=== PATIENT | female | born 1940 | race Caucasian/White ===

== ENCOUNTER → 2016-09-18 | Outpatient (CLI) | payer MEDICARE, OTHER ==
[2016-01-25 16:52] VITALS: BP 121/76
[~2016-09-18] MED LIST: DETROL1 M1 PO; LISINOPRIL10 MG PO; NORCO 325 MG-7.1 TAB PO; OMEPRAZOLE D/R20 MG PO; OXYCODONE5 M1 PO; RANITIDINE 150150 MG PO; SINGULAIR PO; ZYRTEC ALLERGY10 MG PO
== END ==
LOC: RAD 10:44
DX: M17.11 Unilateral primary osteoarthritis, right knee (principal); K22.70 Barrett's esophagus without dysplasia; I10 Essential (primary) hypertension

== ENCOUNTER → 2017-11-13 | Outpatient (CLI) | payer MEDICARE, OTHER ==
[2016-01-25 16:52] VITALS: BP 121/76
== END ==
LOC: RAD 16:59
DX: M19.071 Primary osteoarthritis, right ankle and foot (principal); M25.471 Effusion, right ankle; M79.89 Other specified soft tissue disorders; M25.771 Osteophyte, right ankle; M77.31 Calcaneal spur, right foot

== ENCOUNTER → 2017-11-19 | Outpatient (CLI) | payer MEDICARE, OTHER ==
[2016-01-25 16:52] VITALS: BP 121/76
[2017-11-19 11:17] LABS: ALBUMIN 4.1 g/dL (3.5-5.0); CALCIUM 9.9 mg/dL (8.4-10.2); POTASSIUM 4.1 mmol/L (3.6-5.0); TOTAL BILIRUBIN 0.7 mg/dL (0.2-1.3); TOTAL PROTEIN 7.1 g/dL (6.3-8.2)
== END ==
LOC: RAD 10:36
PROVIDERS: Family Medicine
DX: Z13.820 Encounter for screening for osteoporosis (principal); M81.0 Age-related osteoporosis without current pathological fracture; Z00.00 Encounter for general adult medical examination without abnormal findings; M17.9 Osteoarthritis of knee, unspecified; I10 Essential (primary) hypertension; J30.9 Allergic rhinitis, unspecified; J45.991 Cough variant asthma; S82.891A Other fracture of right lower leg, initial encounter for closed fracture; I51.9 Heart disease, unspecified; K21.9 Gastro-esophageal reflux disease without esophagitis; K22.70 Barrett's esophagus without dysplasia

== ENCOUNTER 2017-12-10 14:00 | Outpatient (RCR) | payer MEDICARE, OTHER ==
[2016-01-25 16:52] VITALS: BP 121/76
== END 2017-12-10 14:30 | disposition home or self-care (01) ==
LOC: PT 14:00
DX: S93.401D Sprain of unspecified ligament of right ankle, subsequent encounter (principal); W19.XXXD Unspecified fall, subsequent encounter; Y92.009 Unspecified place in unspecified non-institutional (private) residence as the place of occurrence of the external cause
CPT/HCPCS: G8978-GP; G8979-GP

== ENCOUNTER 2018-02-04 09:00 | Outpatient (RCR) | payer MEDICARE, OTHER ==
[2016-01-25 16:52] VITALS: BP 121/76
== END 2018-02-04 09:30 | disposition home or self-care (01) ==
LOC: PT 09:00
DX: S82.54XD Nondisplaced fracture of medial malleolus of right tibia, subsequent encounter for closed fracture with routine healing (principal)
CPT/HCPCS: G8979-GP

== ENCOUNTER → 2018-04-30 | Outpatient (CLI) | payer MEDICARE, OTHER ==
[2016-01-25 16:52] VITALS: BP 121/76
== END ==
LOC: RAD 14:10
DX: M48.56XA Collapsed vertebra, not elsewhere classified, lumbar region, initial encounter for fracture (principal); M47.816 Spondylosis without myelopathy or radiculopathy, lumbar region; M41.85 Other forms of scoliosis, thoracolumbar region

== ENCOUNTER → 2018-05-06 | Outpatient (CLI) | payer MEDICARE, OTHER ==
[2016-01-25 16:52] VITALS: BP 121/76
== END ==
LOC: RAD 12:11
DX: S32.040A Wedge compression fracture of fourth lumbar vertebra, initial encounter for closed fracture (principal); W19.XXXA Unspecified fall, initial encounter; M51.25 Other intervertebral disc displacement, thoracolumbar region; M47.817 Spondylosis without myelopathy or radiculopathy, lumbosacral region

== ENCOUNTER → 2018-05-29 | Outpatient (CLI) | payer MEDICARE, OTHER ==
[2016-01-25 16:52] VITALS: BP 121/76
== END ==
LOC: RAD 11:33
DX: M41.9 Scoliosis, unspecified (principal); G95.29 Other cord compression; M47.816 Spondylosis without myelopathy or radiculopathy, lumbar region

== ENCOUNTER → 2018-06-03 | Outpatient (CLI) | payer MEDICARE, OTHER ==
[2016-01-25 16:52] VITALS: BP 121/76
== END ==
LOC: RAD 15:56
DX: S32.038A Other fracture of third lumbar vertebra, initial encounter for closed fracture (principal); M51.36 Other intervertebral disc degeneration, lumbar region; M48.061 Spinal stenosis, lumbar region without neurogenic claudication; M47.816 Spondylosis without myelopathy or radiculopathy, lumbar region

== ENCOUNTER → 2018-09-16 | Day surgery (SDC) | payer MEDICARE, OTHER ==
[2016-01-25 16:52] VITALS: BP 121/76
== END ==
LOC: MSO 10:28
DX: D04.62 Carcinoma in situ of skin of left upper limb, including shoulder (principal); I10 Essential (primary) hypertension; K21.9 Gastro-esophageal reflux disease without esophagitis; J45.909 Unspecified asthma, uncomplicated; M81.0 Age-related osteoporosis without current pathological fracture; Z90.710 Acquired absence of both cervix and uterus; Z80.0 Family history of malignant neoplasm of digestive organs; Z88.6 Allergy status to analgesic agent; Z91.041 Radiographic dye allergy status

== ENCOUNTER 2018-10-14 14:30 | Outpatient (RCR) | payer MEDICARE, OTHER ==
[2016-01-25 16:52] VITALS: BP 121/76
== END 2018-10-16 ==
LOC: PT
DX: M40.204 Unspecified kyphosis, thoracic region (principal); M47.816 Spondylosis without myelopathy or radiculopathy, lumbar region; M48.50XA Collapsed vertebra, not elsewhere classified, site unspecified, initial encounter for fracture; M25.512 Pain in left shoulder

== ENCOUNTER → 2019-04-23 | Outpatient (CLI) | payer MEDICARE, OTHER ==
[2016-01-25 16:52] VITALS: BP 121/76
[2019-04-23 15:01] LABS: ALBUMIN 4.5 g/dL (3.4-4.8); POTASSIUM 4.4 mmol/L (3.5-5.1)
[2019-04-23 15:02] LABS: CALCIUM 10.4 mg/dL (8.3-10.5)
[2019-04-23 15:03] LABS: TOTAL PROTEIN 7.1 g/dL (6.2-8.1)
[2019-04-23 15:05] LABS: TOTAL BILIRUBIN 0.9 mg/dL (0.2-1.2)
[2019-04-23 16:37] LABS: PH-URINE 5.5 (5.0 - 8.0); URINE APPEARANCE CLOUDY; URINE COLOR YELLOW; URINE PROTEIN(semi-quant) TRACE mg/dL (NEGATIVE)
[2019-04-23 16:38] LABS: URINE BILIRUBIN NEGATIVE (NEGATIVE); URINE BLOOD TRACE (NEGATIVE); URINE GLUCOSE NEGATIVE (NEGATIVE); URINE KETONE NEGATIVE (NEGATIVE); URINE LEUKOCYTE ESTERASE 2+ (NEGATIVE); URINE NITRATE POSITIVE (NEGATIVE); URINE UROBILINOGEN NORMAL (NORMAL); URINE WBC >50 /hpf (0-3)
== END ==
LOC: LAB 14:36
PROVIDERS: Family Medicine
DX: Z00.00 Encounter for general adult medical examination without abnormal findings (principal); J45.991 Cough variant asthma; I10 Essential (primary) hypertension; M50.30 Other cervical disc degeneration, unspecified cervical region; K21.9 Gastro-esophageal reflux disease without esophagitis; M47.816 Spondylosis without myelopathy or radiculopathy, lumbar region; M41.124 Adolescent idiopathic scoliosis, thoracic region; K22.70 Barrett's esophagus without dysplasia; J30.9 Allergic rhinitis, unspecified; R73.03 Prediabetes; R32 Unspecified urinary incontinence

== ENCOUNTER → 2019-05-07 | Outpatient (CLI) | payer MEDICARE, OTHER ==
[2016-01-25 16:52] VITALS: BP 121/76
[2019-05-07 11:02] LABS: URINE APPEARANCE CLEAR; URINE BILIRUBIN NEGATIVE (NEGATIVE); URINE BLOOD NEGATIVE (NEGATIVE); URINE COLOR YELLOW; URINE GLUCOSE NEGATIVE (NEGATIVE); URINE KETONE NEGATIVE (NEGATIVE); URINE LEUKOCYTE ESTERASE NEGATIVE (NEGATIVE); URINE MUCUS PRESENT (NOT PRESENT); URINE NITRATE NEGATIVE (NEGATIVE); URINE PROTEIN(semi-quant) TRACE mg/dL (NEGATIVE); URINE UROBILINOGEN NORMAL (NORMAL)
== END ==
LOC: LAB 08:57
PROVIDERS: Family Medicine
DX: N39.0 Urinary tract infection, site not specified (principal)

== ENCOUNTER → 2020-04-23 | Outpatient (CLI) | payer MEDICARE, OTHER ==
[2016-01-25 16:52] VITALS: BP 121/76
[2020-04-23 08:35] LABS: POTASSIUM 3.7 mmol/L (3.5-5.1)
[2020-04-23 08:37] LABS: CALCIUM 8.8 mg/dL (8.3-10.5)
[2020-04-23 08:38] LABS: TOTAL PROTEIN 6.7 g/dL (6.2-8.1)
[2020-04-23 08:40] LABS: TOTAL BILIRUBIN 1.1 mg/dL (0.2-1.2)
== END ==
LOC: LAB 08:06
PROVIDERS: Family Medicine
DX: I10 Essential (primary) hypertension (principal)

== ENCOUNTER → 2020-09-15 | Outpatient (CLI) | payer MEDICARE, OTHER | LOC: LAB 14:11 | DX: R05 Cough (principal); Z20.822 Contact with and (suspected) exposure to COVID-19 ==

== ENCOUNTER → 2021-03-29 | Outpatient (CLI) | payer MEDICARE | LOC: MAMMO 11:30 → RAD 11:38 → MAMMO 11:38 | DX: M81.0 Age-related osteoporosis without current pathological fracture (principal) ==

== ENCOUNTER → 2021-08-04 | Outpatient (CLI) | payer MEDICARE ==
[2021-08-04 16:53] LABS: POTASSIUM 4.1 mmol/L (3.5-5.1)
[2021-08-04 16:54] LABS: CALCIUM 10.3 mg/dL (8.3-10.5)
== END ==
LOC: LAB 15:43
PROVIDERS: Family Medicine
DX: I49.40 Unspecified premature depolarization (principal); R60.0 Localized edema; R09.89 Other specified symptoms and signs involving the circulatory and respiratory systems

== ENCOUNTER → 2021-08-05 | Outpatient (CLI) | payer MEDICARE | LOC: RAD 07:00 → AMSURD 08:33 | DX: I82.431 Acute embolism and thrombosis of right popliteal vein (principal); I82.4Z1 Acute embolism and thrombosis of unspecified deep veins of right distal lower extremity; I49.40 Unspecified premature depolarization ==

== ENCOUNTER → 2021-08-11 | Outpatient (CLI) | payer MEDICARE ==
[2021-08-11 15:52] LABS: CALCIUM 9.2 mg/dL (8.3-10.5)
[2021-08-11 15:56] LABS: URINE APPEARANCE CLEAR; URINE BILIRUBIN NEGATIVE (NEGATIVE); URINE BLOOD NEGATIVE (NEGATIVE); URINE COLOR YELLOW; URINE GLUCOSE NEGATIVE (NEGATIVE); URINE KETONE NEGATIVE (NEGATIVE); URINE LEUKOCYTE ESTERASE NEGATIVE (NEGATIVE); URINE MUCUS PRESENT (NOT PRESENT); URINE NITRATE NEGATIVE (NEGATIVE); URINE PROTEIN(semi-quant) NEGATIVE (NEGATIVE); URINE UROBILINOGEN NORMAL (NORMAL)
== END ==
LOC: LAB 12:40
PROVIDERS: Family Medicine
DX: N39.0 Urinary tract infection, site not specified (principal); I49.40 Unspecified premature depolarization; R60.0 Localized edema; R09.89 Other specified symptoms and signs involving the circulatory and respiratory systems

== ENCOUNTER → 2021-08-15 | Outpatient (CLI) | payer MEDICARE | LOC: RAD 12:07 | DX: M47.816 Spondylosis without myelopathy or radiculopathy, lumbar region (principal); M48.061 Spinal stenosis, lumbar region without neurogenic claudication; M41.86 Other forms of scoliosis, lumbar region ==

== ENCOUNTER → 2021-10-25 | Outpatient (CLI) | payer MEDICARE | LOC: LAB 15:25 | DX: I50.32 Chronic diastolic (congestive) heart failure (principal) ==

== ENCOUNTER 2022-01-20 13:18 | Emergency (ER) | payer MEDICARE ==
[~2022-01-20] VITALS: Ht 152.4 cm; Wt 59.1 kg
[2022-01-20] MEDS ORDERED: ALENDRONATE SOD70 MG PO (13:46)
[2022-01-20 13:47] LABS: URINE WBC 0 /hpf (0-3)
[2022-01-20] MEDS ORDERED: FAMOTIDINE20 MG PO (13:47)
[2022-01-20] MEDS ORDERED: JARDIANCE10 MG PO (13:47)
[2022-01-20] MEDS ORDERED: ELIQUIS2.5 MG PO (13:47)
[2022-01-20] MEDS ORDERED: AMOXICILLIN AND1 TA2 PO (13:47)
[2022-01-20] MEDS ORDERED: PANTOPRAZOLE SO20 M1 PO (13:47)
[2022-01-20] MEDS ORDERED: TRAMADOL 50 MG TAB PO (13:48)
[2022-01-20] MEDS ORDERED: FUROSEMIDE20 MG PO (13:48)
[2022-01-20 14:10] LABS: URINE APPEARANCE CLOUDY; URINE COLOR RED; URINE KETONE NEGATIVE (NEGATIVE); URINE PROTEIN(semi-quant) 3+ (NEGATIVE)
[2022-01-20 14:11] LABS: URINE BILIRUBIN NEGATIVE (NEGATIVE); URINE BLOOD 250 ery/uL (NEGATIVE); URINE LEUKOCYTE ESTERASE NEGATIVE (NEGATIVE); URINE NITRATE NEGATIVE (NEGATIVE); URINE UROBILINOGEN 1 mg/dL (NORMAL)
[2022-01-20 14:17] LABS: BASO # 0.03 K/mm3 (0.02-0.10); EOS # 0.09 K/mm3 (0.04-0.40); EOS % 1.5 % (1.0-5.0); HEMATOCRIT 39.7 % (37.0-47.0); HEMOGLOBIN 12.9 g/dL (12.5-16.0); LYMPH# 1.16 K/mm3 (1.50-4.00); MEAN CELL VOLUME 90 fl (78-100); MEAN CORPUSCULAR HEMOGLOBIN 29 pg (27-31); MEAN CORPUSCULAR HGB CONC 33 g/dL (33-37); MEAN PLATELET VOLUME 9.1 fl (7.4-10.4); MONO # 0.75 K/mm3 (0.20-0.80); NEU # 4.05 K/mm3 (1.40-6.50); PLATELET COUNT 238 K/mm3 (130-400); RED BLOOD COUNT 4.41 M/mm3 (4.10-5.30); RED CELL DISTRIBUTION WIDTH 13.3 % (11.5-14.5); WHITE BLOOD COUNT 6.1 K/mm3 (4.8-10.8)
[2022-01-20 14:28] LABS: ALBUMIN 3.6 g/dL (3.4-4.8); POTASSIUM 4.9 mmol/L (3.5-5.1)
[2022-01-20 14:30] LABS: CALCIUM 9.7 mg/dL (8.3-10.5)
[2022-01-20 14:31] LABS: TOTAL PROTEIN 6.2 g/dL (6.2-8.1)
[2022-01-20 14:33] LABS: TOTAL BILIRUBIN 0.6 mg/dL (0.2-1.2)
[2022-01-20] MEDS ORDERED: CEPHALEXIN500 M1 PO (15:48)
[2022-01-20 16:19] VITALS: BP 149/90
== END 2022-01-20 16:20 | disposition home or self-care (01) ==
LOC: ED 13:18
PROVIDERS: Nurse Practitioner
DX: N12 Tubulo-interstitial nephritis, not specified as acute or chronic (principal); Z79.01 Long term (current) use of anticoagulants
CPT/HCPCS: J0696; J7030

== ENCOUNTER → 2022-01-27 | Outpatient (CLI) | payer MEDICARE ==
[~2022-01-27] MED LIST changes: +ALENDRONATE SOD70 MG PO; +AMOXICILLIN AND1 TA2 PO; +CEPHALEXIN500 M1 PO; +ELIQUIS2.5 MG PO; +FAMOTIDINE20 MG PO; +FUROSEMIDE20 MG PO; +JARDIANCE10 MG PO; +PANTOPRAZOLE SO20 M1 PO; +TRAMADOL 50 MG TAB PO
[2022-01-27 16:53] LABS: URINE APPEARANCE CLOUDY; URINE BILIRUBIN NEGATIVE (NEGATIVE); URINE COLOR AMBER; URINE KETONE NEGATIVE (NEGATIVE); URINE NITRATE NEGATIVE (NEGATIVE); URINE PROTEIN(semi-quant) 1+ (NEGATIVE); URINE UROBILINOGEN NORMAL (NORMAL)
[2022-01-27 16:54] LABS: URINE BLOOD 250 ery/uL (NEGATIVE); URINE LEUKOCYTE ESTERASE 1+ (NEGATIVE); URINE WBC 16-30 /hpf (0-3)
[2022-01-27 16:58] LABS: CALCIUM 9.6 mg/dL (8.3-10.5)
== END ==
LOC: LAB 16:20
PROVIDERS: Family Medicine
DX: J98.11 Atelectasis (principal); M47.895 Other spondylosis, thoracolumbar region; M40.204 Unspecified kyphosis, thoracic region; S83.91XD Sprain of unspecified site of right knee, subsequent encounter; E11.9 Type 2 diabetes mellitus without complications; R10.32 Left lower quadrant pain; X58.XXXD Exposure to other specified factors, subsequent encounter

== ENCOUNTER 2022-02-02 11:17 | Emergency (ER) | payer MEDICARE ==
[2022-02-02 16:43] VITALS: BP 120/71
--- NOTE | 2022-02-02 16:57 | NUR ---
Spoke with Millicent and her daughter in law. Millicent has had home health in the past. She has had [facility]. She would like them once again. Gave resources to Millicent and her daughter in law. [facility]. They were in agrement to contact these for added support and care at home. Millicent states that she and her are not going to a detention. Daughter in law states that her daughter is driving here from another state and she can assist Millicent with finding help at home. Faxed Clinicals to [facility]. Will call in the morning to [facility] and ask for them to review the informaiton.
== END 2022-02-02 15:57 | disposition home or self-care (01) ==
LOC: ED 11:17
DX: M53.3 Sacrococcygeal disorders, not elsewhere classified (principal); Z28.310 Unvaccinated for COVID-19; W01.0XXA Fall on same level from slipping, tripping and stumbling without subsequent striking against object, initial encounter; Y92.009 Unspecified place in unspecified non-institutional (private) residence as the place of occurrence of the external cause
CPT/HCPCS: J1885

== ENCOUNTER 2022-02-04 10:46 | Observation (INO) | payer MEDICARE ==
[~2022-02-04] VITALS: Ht 150 cm; Wt 60.0 kg
[2022-02-04] MEDS ORDERED: LISINOPRIL10 MG PO (11:02)
[2022-02-04] MEDS ORDERED: NATURE'S BLEND1 TA6 PO (11:03)
[2022-02-04] MEDS ORDERED: VITAMIN C WIT1000 M2 PO (11:04)
[2022-02-04] MEDS ORDERED: CRANBERRY-PROB1 EACH PO (11:05)
[2022-02-04 15:37] LABS: BASO # 0.04 K/mm3 (0.02-0.10); EOS # 0.11 K/mm3 (0.04-0.40); EOS % 1.4 % (1.0-5.0); HEMATOCRIT 37.5 % (37.0-47.0); HEMOGLOBIN 12.4 g/dL (12.5-16.0); LYMPH# 1.02 K/mm3 (1.50-4.00); MEAN CELL VOLUME 90 fl (78-100); MEAN CORPUSCULAR HEMOGLOBIN 30 pg (27-31); MEAN CORPUSCULAR HGB CONC 33 g/dL (33-37); MONO # 1.12 K/mm3 (0.20-0.80); NEU # 5.38 K/mm3 (1.40-6.50); PLATELET COUNT 225 K/mm3 (130-400); RED BLOOD COUNT 4.15 M/mm3 (4.10-5.30); RED CELL DISTRIBUTION WIDTH 13.1 % (11.5-14.5); WHITE BLOOD COUNT 7.7 K/mm3 (4.8-10.8)
[2022-02-04 15:45] LABS: POTASSIUM 4.5 mmol/L (3.5-5.1)
[2022-02-04 15:46] LABS: CALCIUM 9.4 mg/dL (8.3-10.5)
[2022-02-04 16:09] VITALS: BP 114/62
[2022-02-04 16:38] LABS: URINE APPEARANCE CLOUDY; URINE COLOR YELLOW; URINE GLUCOSE NEGATIVE (NEGATIVE); URINE PROTEIN(semi-quant) 2+ (NEGATIVE)
[2022-02-04 16:39] LABS: URINE BILIRUBIN NEGATIVE (NEGATIVE); URINE KETONE NEGATIVE (NEGATIVE); URINE NITRATE NEGATIVE (NEGATIVE); URINE UROBILINOGEN NORMAL (NORMAL)
[2022-02-04 16:40] LABS: URINE BLOOD 250 ery/uL (NEGATIVE); URINE LEUKOCYTE ESTERASE NEGATIVE (NEGATIVE)
--- NOTE | 2022-02-04 18:48 | NUR ---
REPORT TO ASAD SPEARS.
--- NOTE | 2022-02-04 19:10 | NUR ---
Report received from Linda GARDINER. Patient resting on R side in bed. A/O x4. Denies pain at rest, has shooting pain in back with movement. Assessment completed. PROJECTION CAMERA OPERATOR in to assist with I.S. and pulls 10 reps of 500 ML. POC and medications reviewed. Staff in to repositon and provide incontinent cares Q 2 hours. Bed alarm on. Call light in reach.
--- NOTE | 2022-02-04 20:30 | NUR ---
Rests quietly with eyes closed. Awakens easily with verbal stimuli. HS medications taken whole without difficulty. Pain pill taken at this time.
--- NOTE | 2022-02-04 21:30 | NUR ---
Staff in to reposition. Reports no pain with rest but has pain with rolling and repositioning. Incontinent of urine. Pericares provided. Barrier cream to buttocks and groin area. Repositioned to R side. Denies wants or needs at this time. Bed alarm on. Call light in reach.
[2022-02-04 22:00] VITALS: BP 119/70
--- NOTE | 2022-02-05 00:57 | NUR ---
Repositioned with incontinent cares. Pain pill given at this time.
[2022-02-05 01:18] VITALS: BP 134/74
--- NOTE | 2022-02-05 04:30 | NUR ---
Repositioned with incontinent cares provided. Resting well all shift.
[2022-02-05 06:10] VITALS: BP 120/78; BP 121/65
--- NOTE | 2022-02-05 07:00 | NUR ---
REPORT RECEIVED FROM ASAD SPEARS. PATIENT RESTING IN BED WITH EYES CLOSED. BED IN LOWEST LOCKED POSTION, ALARM ON. CALL LIGHT WITHIN REACH.
--- NOTE | 2022-02-05 07:17 | NUR ---
Report to [facility] CHAIN TESTING MACHINE OPERATOR.
--- NOTE | 2022-02-05 08:00 | NUR ---
PATIENT SITTING UP IN BED, PLEASENT AND COOPERATIVE. A&OX4. REFUSES TO GET UP TO CHAIR FOR MORNING MEAL D/T PAIN. PATIENT STATES PAIN 8/10 ON NUMERIC PAIN SCALE IN LOWER BACK. ASSESSMENT COMPLETE AT THIS TIME. PATIENT DENIES OTHER NEEDS OR COMPLAINTS AT THIS TIME. BED IN LOWEST LOCKED POSTION, ALARM ON, CALL LIGHT WITHIN REACH.
--- NOTE | 2022-02-05 09:30 | NUR ---
PATIENT ASSISTED TO CHAIR WITH 2X STAFF ASSIST PIVOT TRANSFER. PATIENT STATES PAIN REMAINS 8/10 ON NUMERIC PAIN SCALE. PRN ANALGESICS OFFERED AT THIS TIME. PATIENT DENIES OTHER NEEDS OR COMPLAINTS. PATIENT DAUGHTER AND SON IN LAW PRESENT IN ROOM. ALL QUESTIONS ANSWERED. CHAIR LOCKED, ALARM ON, CALL LIGHT WITHIN REACH.
[2022-02-05 09:36] VITALS: BP 105/64
--- NOTE | 2022-02-05 11:52 | NUR ---
Spoke with Daughter Pearl Olmedo. She states that her mom and dad are not able to care for themselves at home. Millicent and the daughter are in agreement that they need emergency senior care placement. Millicent cares for her who is overweight, Diabetic, kidney and heart issues. This CM will obtain last Clinic note from Dr. Cabrera their primary care provider. Information obtained from Pearl: [place] DL, Insurance cards, DPOA paperwork, and Living Will information. Those Items were copied and originals returned to Pearl. Millicent states since her fall she has not been able to care for her Eleuterio Bustamante. They are both wanting emergency senior care placement. Clinicals will be faxed to [facility]. They are in agreement that who ever can take them first will be chosen.
--- NOTE | 2022-02-05 12:11 | NUR ---
Daughter and patient state there in not mental health diagnosis or problems in the past or present. She states that she falls frequently. Maybe 3 falls in last 6 months. .
[2022-02-05 14:41] VITALS: BP 108/66
[2022-02-05 17:50] VITALS: BP 100/59
--- NOTE | 2022-02-05 18:50 | NUR ---
REPORT GIVEN TO ASAD SPEARS.
--- NOTE | 2022-02-05 20:26 | NUR ---
Report received from Gertrudis KAMARA. Patient rests in bed. Calls as she got "tangled up in the covers". Alert, but tired and worn out. Oriented x4. Pain "not too bad" at rest but grimaces with repositioning. Incontinent of urine. Faye-cares by staff. Assessment completed. HS medications and PRN analgesic administered. Takes whole, swallows without difficulty. HR CONSULTANT in assisting with I.S and oral cares. Bed alarm on. Call light in reach.
[2022-02-05 22:40] VITALS: BP 120/68
--- NOTE | 2022-02-06 02:59 | NUR ---
Patient has been sleeping quietly with no signs of pain or distress. Bed alarm on. Call light in reach.
--- NOTE | 2022-02-06 04:55 | NUR ---
Resting well. Incontinent of urine. Pain with rolling during incontinent cares. PRN analgesic provided. Fosamax taken. HOB elevated for 30 minutes.
[2022-02-06 05:53] VITALS: BP 117/68
[2022-02-06 10:30] VITALS: BP 124/81
--- NOTE | 2022-02-06 11:33 | NUR ---
Spoke with Millicent and her daughter. Millicent is willing to go to [facility] today. Anticipation for Eleuterio to go tomorrow from Home. Orders for Emergency admission and other needed clinicals, DPOA, Code Status, Covid vaccine, Insurance informaiton and Drivers lic. faxed to Hussein at [facility]. Called [facility] and advised they would be going to [facility]. Daughter informed of needed payment to [facility] today. She will meet her mom today at [facility]. [facility] will transport Millicent at 12:30 or 1:00
[2022-02-06] MEDS ORDERED: CEPHALEXIN250 M2 PO (12:00)
--- NOTE | 2022-02-06 12:39 | NUR ---
Discharge information faxed to [facility]. Called [facility] Spoke to Hussein and advised they were on their way.
[2022-02-06 14:09] VITALS: BP 107/69
--- NOTE | 2022-02-06 14:52 | NUR ---
[facility] will pick up truck driver around 3pm today.
--- NOTE | 2022-02-06 15:50 | NUR ---
Patient discharge to [facility] in [place], [place]. A&Ox4, RA, c/o mild discomfort with transfer in lower back. Discharge instructions given to [facility] staff at bedside. All questions and concerns addressed at this time. All personal belongings sent with patient. Discharge by w/c with [facility] staff with their transportation.
== END 2022-02-06 15:53 ==
LOC: ED 10:46 → MED/SURG 14:52
PROVIDERS: ADMIT Family Medicine
DX: S30.0XXA Contusion of lower back and pelvis, initial encounter (principal); Z86.718 Personal history of other venous thrombosis and embolism; S22.49XA Multiple fractures of ribs, unspecified side, initial encounter for closed fracture; E11.9 Type 2 diabetes mellitus without complications; I50.9 Heart failure, unspecified; R31.9 Hematuria, unspecified; K21.9 Gastro-esophageal reflux disease without esophagitis; R53.81 Other malaise; R82.81 Pyuria; W19.XXXA Unspecified fall, initial encounter; Y93.9 Activity, unspecified; Y92.9 Unspecified place or not applicable; Z79.84 Long term (current) use of oral hypoglycemic drugs; Z79.01 Long term (current) use of anticoagulants; Z91.81 History of falling; Z79.899 Other long term (current) drug therapy
CPT/HCPCS: A9270; G0378